=== PATIENT | male | born 1985 | race Caucasian/White ===

== ENCOUNTER 2019-10-15 08:51 | Day surgery (SDC) | payer BC ==
[2019-10-15] MEDS ORDERED: CLINDAMYCIN 600 MG/D5W RTU 600 MG/50 ML RTUPB IV ONE (09:38)
[2019-10-15] MEDS ORDERED: KETOROLAC TROMETHAMINE 60 MG/2 ML SDV ONE (09:56)
[2019-10-15] MEDS ORDERED: ONDANSETRON HCL INJ/PF 4 MG/2 ML SDV ONE (09:56)
[2019-10-15] MEDS ORDERED: MIDAZOLAM 2 MG/2 ML INJ ONE (09:56)
[2019-10-15] MEDS ORDERED: PROPOFOL INJ 200 MG/20 ML VIAL IV ONE (09:56)
[2019-10-15] MEDS ORDERED: FENTANYL CITRATE INJ/PF 100 MCG/2 ML AMPUL ONE (09:56)
[2019-10-15] MEDS ORDERED: BUPIVACAINE HCL 0.5 % INJ/PF 30 ML SDV ONE (11:44)
[2019-10-15] MEDS ORDERED: LIDOCAINE 1% INJ-PF (10 MG/ML) 30 ML SDV ONE (11:44)
[2019-10-15] MEDS ORDERED: LIDOCAINE 1%/EPINEPHRINE INJ 20 ML VIAL ONE (11:51)
--- NOTE | 2019-10-15 12:24 | Progress Note ---
Provider Note Provider Note: 34-year-old male who inadvertently cut his ring and small finger with a knife 10/09/2019 at that time he was seen at a urgent care where the wounds were closed patient was found to have flexor tendon laceration and unable to bend his fingers. Denies numbness. Right ring finger: Transverse laceration along the base of the fifth MCP joint. Patient lacks flexion of the DIP/PIP joints. Cap refill less than 2 seconds. Normal skin turgor. Intact sharp versus dull touch radial and ulnar digital nerve distribution. Right ring flexor tendon laceration zone II Today we discussed plan which is to proceed with operative intervention including flexor tendon repair. Postoperative prognosis, outcomes and importance of rehabilitation have been explained to the patient risk of rerupture, scarring, loss of motion necessitating possible additional surgery in the future have also been explained patient verbalized understanding consented for surgical procedure.
[2019-10-15] MEDS ORDERED: DIPHENHYDRAMINE HCL 50 MG/ML VIAL IV PRN (12:32)
[2019-10-15] MEDS ORDERED: ONDANSETRON HCL INJ/PF 4 MG/2 ML SDV IV PRN ×2 (12:32→14:08)
[2019-10-15] MEDS ORDERED: MEPERIDINE HCL/PF INJ 25 MG/1 ML DISP.SYRIN IV PRN (12:32)
[2019-10-15] MEDS ORDERED: MORPHINE SULFATE 10 MG/ML INJ IV PRN (12:32)
[2019-10-15] MEDS ORDERED: FENTANYL CITRATE INJ/PF 100 MCG/2 ML AMPUL IV PRN ×3 (12:32)
[2019-10-15] MEDS ORDERED: OXYCODONE-ACETAMINOPHEN 5-325 MG TABLET PO PRN (14:08)
--- NOTE | 2019-10-15 14:09 | Discharge Summary ---
Discharge Summary (SDC) - Discharge Final Diagnosis: Right small finger flexor tendon laceration Date of Surgery: 10/15/19 Discharge Date: 10/15/19 Condition: Good Treatment or Instructions: Schedule Follow Up w/ Dr. Rickey Valentine @ [facility] to be seen in 10-14 days or as scheduled [place]: [place]: [place]: Ice and elevate Keep splint clean/dry/intact, do not remove. If your fingers become numb please unwrap the Blane wrap but leave the splint in place, if the sensation does not return within 30 minutes please return to the emergency department. Please use ibuprofen (Motrin or Advil) 600-800 mg every 8 hours as needed for pain or fever DO NOT TAKE w/ TORADOL may use once TORADOL complete. You may also use acetaminophen (Tylenol) 1000 mg every 4-6 hours as needed for pain or fever. Please be aware that many medications contain acetaminophen, do not exceed a total of 1000 mg of acetaminophen every 6 hours. If ibuprofen and acetaminophen are not sufficient for your pain you may take the Percocet/[place]. Please be aware that the Percocet/[place] does contain Tylenol. Stool softener of choice when on pain medication. USE OF [id number]-ZGA-[id number] IBUPROFEN: Ibuprofen (Advil, Nuprin, Medipren, Motrin IB) is a medication for fever and pain control. In addition, it has anti- inflammatory effects which may be beneficial, especially in the treatment of injuries. It's best to take ibuprofen with food. Persons with ulcer disease or allergy to aspirin should notify their physician of this before taking ibuprofe n. Ibuprofen can be given every four to six hours, for a total of four doses daily. Age Pain or fever dose Antiinflammatory dose 6-8 yr 200 mg (1 tab) 200 mg (1 tab) 9-11 yr 200 mg (1 tab) 200-400 mg (1-2 tab) 11-14 yr 200-400 mg (1-2 tab) 400 mg (2 tab) 15-adult 400 mg (2 tab) 600 mg (3 tab) ORAL NARCOTIC MEDICATION: You have been given a prescription for pain control. This medication is a narcotic. It's best taken with food, as nausea can result if taken on an empty stomach. Don't operate machinery or drive within six hours of taking this medication. Do not combine this medicine with alcohol, or with any medication which can cause sedation (such as cold tablets or sleeping pills) unless you get permission from the physician. Narcotics tend to cause constipation. If possible, drink plenty of fluids and eat a diet high in fiber and fruits. Please be aware that prescription narcotics also have the potential for abuse. People become addicted to these medications because of the general sense of wellbeing that they induce. This feeling along with a significant reduction in tension, anxiety, and aggression provides a stimulating seductive quality to these drugs. Once your pain is under control, we encourage you to discard your unused narcotics. Prescriptions: Ketorolac Tromethamine [Toradol 10 mg Tablet] 10 mg PO Q8HP PRN #12 tablet PRN Reason: Oxycodone HCl/Acetaminophen [Percocet 5-325 mg Tablet] 1 tab PO Q6 PRN #25 tab PRN Reason: Discharge Diet: As Tolerated Respiratory Treatments at Home: Deep Breathing/Coughing Discharge Activity: No Lifting Over 10 Pounds, No Lifting/Push/Pulling Report the Following to Your Physician Immediately: Fever over 101 Degrees, Un usual Bleeding, Redness, Swelling, Warmth, Increased Soreness
--- NOTE | 2019-10-15 14:16 | Operative Report ---
Operative Report DATE OF SURGERY: 10/15/19 PREOPERATIVE DIAGNOSIS: Right small finger flexor tendon laceration zone II POSTOPERATIVE DIAGNOSIS: Same OPERATION: Right small finger zone II FDP/FDS repair SURGEON: VAUGHN YOON ANESTHESIA: LMAC COMPLICATIONS: None ESTIMATED BLOOD LOSS: Minimal PROCEDURE: Indication for above procedure: 34-year-old male who inadvertently cut his ring and small finger with a knife 10/09/2019 at that time he was seen at a urgent care where the wounds were closed patient was found to have flexor tendon laceration and unable to bend his fingers. Denies numbness. Procedure In Detail: Patient was seen and evaluated in the preoperative holding area. The RIGHT upper extremity was initialized and marked. Patient received 2g of Ancef IV for bacterial prophylaxis. In the preoperative holding area digital block was performed with 10 cc of 1% lidocaine with epinephrine. Additional 2 cc at the MP joint, PIP joint and 1 cc at the DIP joint. Patient was taken back to the operative room where transferred to the operative table. A surgical team debriefing was performed ensuring all instrumentation was available, the surgical procedure was discussed with possible concerns reviewed. A timeout was done identifying correct patient, procedure and extremity everyone in attendance agree with this and verbalized no concerns. Surgical incision was extended distally with mid lateral incision and then volarly partially across the DIP joint. It was then extended proximally to the distal palmar crease. Blunt dissection was performed. The radial and ulnar neurovascular bundles were identified and retracted with the skin flap to expose the underlying flexor sheath. Laceration occurred at zone II at the level of the A2 zabrina. There was partial involvement of the ulnar digital artery and small dorsal branch of the ulnar digital nerve. Wound was copiously irrigated with normal saline. Proximal one third of the A4 zabrina was vented along with the A3 zabrina in order to localize the distal stump of the FDP and FDS. Proximally the FDS and FDP were identified without manipulation of the cut tendon edge the FDS and FDP were fed through the flexor sheath to the open area to allow repair. These were provisionally fixated with 22-gauge needle. FDS was then repaired with 5-0 [id number]-[id number] suture which adequately brought the tendon edges together. FDP was then initially fixated with a epitendinous suture along the dorsal wall with a running 5-0 Prolene, each suture and was left free to allow for repair of the volar wall. 2 mm bites were obtained with the epitendinous suture. FDP was repaired with a core suture 8 stranded cross cruciate suture utilizing 4-0 Fiber Loop which successfully brought the tendon edges together. 7 mm bites were placed distally and 1 cm bite placed proximally. Epitendinous suture was then completed with a 5-0 Prolene. There was no evidence of impingement of the tendon on the flexor sheath with flexion or extension. No evidence of bowstringing. Patient was awoken from anesthesia with able to make a full composite fist and full extension. There is no gapping of the tendon with active flexion. Patient had full active range of motion. Wound was copiously irrigated with normal saline. Skin was closed with interrupted 4-0 nylon suture. Wound was dressed with Xeroform for first patient was placed in a dorsal blocking splint with the wrist at neutral position MP joints flexed at 60 degrees and IP joints neutral. Sponge counts, instrument counts, needle counts counts were correct. Patient was then awoken from anesthesia. Transferred from the operating room table to the operating room stretcher. There was no intraoperative complications patient tolerated procedure well stable to PACU. Postoperative plan: Patient will begin occupational therapy 5-7 days postoperatively as per [place] flexor tendon protocol zone II
[2019-10-15] MEDS ORDERED: OXYCODONE-ACETAMINOPHEN 5-325 MG TABLET ONE (14:36)
[2019-10-15 16:11] VITALS: BP 155/94
== END 2019-10-15 16:10 | disposition home or self-care (01) ==
LOC: OROUT 08:51
PROVIDERS: ATTEND Orthopaedic Surgery
DX: S66.126A Laceration of flexor muscle, fascia and tendon of right little finger at wrist and hand level, initial encounter (principal); S61.216A Laceration without foreign body of right little finger without damage to nail, initial encounter; W26.0XXA Contact with knife, initial encounter; Z03.818 Encounter for observation for suspected exposure to other biological agents ruled out; Z88.0 Allergy status to penicillin; E66.9 Obesity, unspecified
CPT/HCPCS: 87635 ×2; 26356 ×2; J2250; J1885; J3010; J3490; J2405; J2704; C9803 ×2; 1810